=== PATIENT | male | born 1950 | race Caucasian/White ===

== ENCOUNTER 2017-06-18 07:52 | Inpatient (IN) ==
[2017-06-18] MEDS ORDERED: NS 1,000 ML IV ONE (08:16)
--- NOTE | 2017-06-18 08:17 | Emergency Department Report ---
General Adult HPI - General Chief complaint: Medical Emergency Stated complaint: ARZATE, Rash, Pain in rt thigh Time Seen by Provider: 06/18/17 08:14 Source: patient Mode of arrival: ambulatory Limitations: no limitations - History of Present Illness HPI narrative: 67-year-old male presents to the emergency department with a chief complaint of a rash to the right lower extremity. Patient has been feeling poorly for the past several days. Patient noted onset of rash 1 day ago. Patient describes the rash as being similar to cellulitis in the past. Patient describes his pain as mild. Pain is dull. No radiation. Patient was at home when his symptoms began. Symptoms have been persistent in nature since onset. He does note improvement with analgesia. No other complaints or associated symptoms. - Related Data Home Medications Medication Instructions Recorded Confirmed Cholecalciferol (Vitamin D3) 3,000 unit PO DAILY #0 08/27/16 06/18/17 [Vitamin D3] Aspirin 325 mg PO HS 06/16/17 06/18/17 Lisinopril [Prinivil] 10 mg PO HS 06/16/17 06/18/17 Multivitamin [One Daily] 1 tab PO DAILY 06/16/17 06/18/17 Ondansetron [Zofran Odt] 4 mg PO Q6HR PRN 06/18/17 06/18/17 Allergies Allergy/AdvReac Type Severity Reaction Status Date / Time streptomycin Allergy Unknown Verified 06/18/17 10:04 Sulfa (Sulfonamide Allergy Unknown Verified 06/18/17 10:04 Antibiotics) Review of Systems Constitutional: Denies: fever, chills Eyes: Denies: eye pain, vision change ENT: Denies: ear pain, throat pain Cardiovascular: Denies: chest pain, palpitations Respiratory: Denies: cough, dyspnea Gastrointestinal: Denies: abdominal pain, nausea, vomiting, diarrhea Genitourinary: Denies: urgency, dysuria Musculoskeletal: Denies: back pain, arthralgia Integumentary: Reports: erythema. Denies: rash Neurological: Denies: headache, numbness Psychiatric: Denies: anxiety, depression Endocrine: Denies: fatigue, heat or cold intolerance Hematological/Lymphatic: Denies: easy bleeding, easy bruising Allergic/Immunologic: Denies: facial swelling, urticaria PFSH Patient Stated Medical History Hypertension Yes Sepsis Yes: 3 years ago-ankle wound Surgical History: Debridement of RLE Family History: Reviewed and Noncontributory. - Social History Smoking status: Never smoker Substance use type: does not use Alcohol intake frequency: does not drink Physical Exam - Limitations Limitations: no limitations - General General appearance: alert, in no apparent distress - Normal Exams: Head:: Normocephalic without trauma Eyes:: Pupils are PERRLA w/ EOMI, No scleral icterus, irritation, or foreign bodies noted ENMT:: No facial trauma, nasal exudates, pharyngeal erythema, or exudates are noted Dental: No fractured, loose, or missing teeth noted Neck:: Full range of motion, without adenopathy, JVD, bruits or thyromegaly Chest/Respirations:: Clear all esposito, with good airflow, and symmetry bilaterally Cardiovascular:: Regular rate and rhythm, without murmur or gallop, Pulses 2+ all extremities, capillary refill, <2 seconds all extremities Abdomen:: Bowel sounds positive, soft, non-tender, non-distended, no hepatosplenomegaly, masses or bruits noted Lymphatic:: No lymphadenopathy, or lymphedema noted Musculoskeletal:: No tenderness, or deformity noted, good range of motion, all extremities Integumentary:: No rashes, hives, or bruising noted, hair and nails, without abnormality (RLE - erythema and tenderness consistent with cellulitis noted over anterior right lower extremity over the eric. No sign of abscess. Pulses are intact. Sensation intact. Capillary refill less than 2. Full range of motion. No focal bony tenderness. Patient does have signs of lymphangitis extending to his groin.) Neurological:: Patient is alert, and oriented, cranial nerves, motor/sensory/ cerebellar, exams w/o gross deficits, to observation Psychiatric:: Patient exhibits, appropriate attention, emotion and affect Course Vital Signs Temperature 98.1 F 06/18/17 08:00 Pulse Rate 78 06/18/17 08:00 Respiratory Rate 16 06/18/17 08:00 Blood Pressure 117/63 06/18/17 08:00 Pulse Oximetry 99 06/18/17 08:00 Temperature 97.0 F 06/18/17 15:30 Pulse Rate 82 06/18/17 15:30 Respiratory Rate 82 H 06/18/17 16:05 Blood Pressure 135/90 H 06/18/17 15:30 Pulse Oximetry 99 06/18/17 16:05 Medical Decision Making - [facility] Narrative Medical decision making narrative: Labs / imaging were discussed in detail with the patient and questions are answered. Patient was given gentle IV hydration. Patient was given analgesic pain medication with improvement of symptoms. Patient was given vancomycin 1.75 g IV times one. Patient was admitted to the service of the hospitalist in improved condition for treatment of cellulitis with lymphangitis. Patient and family are in agreement with the current plan of management. Patient is admitted to the hospital in improved condition. No further orders from the accepting physician who is in agreement with the current plan of management. Patient was admitted to the service of Dr. Dubois after discussion with her. Sepsis was considered at 1028 and Vancomycin 1.75 g iv x 1 was ordered. Patient' s lactate was < 4 and he was never hypotensive in the ED. - Differential Diagnosis Cellulitis, lymphangitis, viral syndrome, metabolic disorder - Lab Data Result diagrams: 06/18/17 08:32 06/18/17 08:32 Lab Results 06/18/17 06/18/17 Range/Units 08:32 08:32 WBC 6.7 D (4.5-11.0) T/MM3 RBC 4.62 (4.50-5.90) M/MM3 Hgb 13.9 (13.5-17.5) GM/DL Hct 42.2 (41-53) % MCV 91.3 (80-100) UM3 MCH 30.1 (26-34) UUG MCHC 32.9 (31-37) GM/DL RDW Std Deviation 46.8 (36.9-50.2) FL Plt Count 160 (130-400) T/MM3 MPV 10.2 (9.4-12.4) UM3 Immature Gran % (Auto) 0.0 (0.0-0.5) % Neut % (Auto) 78.8 H (33-66) % Lymph % (Auto) 10.5 L (23-45) % Divide % (Auto) 9.1 H (0-9.0) % Eos % (Auto) 1.3 (0-4) % Baso % (Auto) 0.3 (0-2) % Neut # (Auto) 5.3 (1.8-7.7) T/MM3 Lymph # (Auto) 0.7 L (1-4.8) T/MM3 Divide # (Auto) 0.6 (0-0.8) T/MM3 Eos # (Auto) 0.1 (0-0.5) T/MM3 Baso # (Auto) 0.0 (0-0.2) T/MM3 Abs Immat Gran (auto) 0.00 (0.00-0.03) T/MM3 Turbidity < 20 (0-20) Sodium 141 (134-144) MEQ/L Potassium 4.0 (3.6-5) MEQ/L Chloride 106 (98-107) MEQ/L Carbon Dioxide 26 (22-30) MEQ/L Anion Gap 9 (5-15) MEQ/L BUN 10.0 (9-20) MG/DL Creatinine 0.9 D (0.8-1.5) MG/DL GFR Calculation 84 BUN/Creatinine Ratio 11 (6-26) RATIO Glucose 93 (75-110) MG/DL Calculated Osmolality 270 (261-280) MOSM/KG Calcium 8.6 (8.4-10.2) MG/DL Total Bilirubin 0.60 (0.20-1.30) MG/DL Icterus Index < 2 (0-7) AST 31 (17-59) U/L ALT 35 (21-72) U/L Alkaline Phosphatase 52 (38-126) U/L C-Reactive Protein 76.6 H (0-9) MG/L Total Protein 6.5 (6.3-8.2) G/DL Albumin 3.8 (3.5-5.0) G/DL Globulin 2.7 (2.4-3.6) G/DL Albumin/Globulin Ratio 1.4 (1.1-2.2) RATIO Plasma Lactate 1.1 (0.6-2.2) MMOL/L Specimen Hemolysis < 15 (0-25) - Radiology Data TIB/FIB X-ray - Soft tissue swelling without gas or acute processes. Venous Duplex RLE - Negative for dvt. Disposition Clinical Impression: CELLULITIS Disposition: [facility] [place] Care Condition: Stable Time of Disposition: 10:15 (Admit. Dr. Dubois. ) - Seen By: physician
--- OUTSIDE RECORDS SUMMARY | 2017-06-18 08:28 | External Medical Summary | Encounter Summary ---
:1950 Author Organization [facility] Address [address] [place] [address] Phone Care Team Providers Name Role Phone Unavailable Primary Care Provider Unavailable Encounter Details Date Type Department Care Team Description 06/13/2017 Lab Visit [facility] - Personal history of [place] malignant neoplasm of [address] prostate (Primary Dx) [place] [address] Social History Tobacco Use Types Packs/Day Years Used Date Never Smoker Smokeless Tobacco: Never Used Alcohol Use Drinks/Week oz/Week Comments No Alcoholic Drinks/day: Never Sex Assigned at Date Recorded Not on file as of this encounter Plan of Treatment Upcoming Encounters Date Type Specialty Care Team Description 08/28/2017 Office Visit Internal Medicine Bib Fleming MD [address] [place] [address] as of this encounter Goals Patient Goal Type Goal Recent Progress Patient-Stated? Author Weight Weight (lb) < 110.2 kg (243 lb) No Bib Fleming, 200 (05/30/2017 9:30 MD AM DRIVER SERVICE TECHNICIAN) as of this encounter Results PSA (06/13/2017 7:23 AM) Component Value Ref Range PSA 0.03 0.00 - 4.00 ng/mL Specimen Performing Laboratory Blood [facility] [address] [place] [address] in this encounter Visit Diagnoses Diagnosis Personal history of malignant neoplasm of prostate - Primary in this encounter
--- OUTSIDE RECORDS SUMMARY | 2017-06-18 08:28 | External Medical Summary | Encounter Summary ---
:1950 Author Organization [facility] Address [address] [place] [phone] Phone Care Team Providers Name Role Phone Unavailable Primary Care Provider Unavailable Reason for Visit Reason Comments Other follow up Encounter Details Date Type Department Care Team Description 05/30/2017 Office Visit Bib Emery, Mixed hyperlipidemia Internal Medicine - [place] (Primary Dx);Essential [place] [address] hypertension;Chronic [address] [place] [address] [place] (HCC);Diabetes mellitus [phone] type 2 in obese [phone] ([facility]);Right hip pain Social History Tobacco Use Types Packs/Day Years Used Date Never Smoker Smokeless Tobacco: Never Used Alcohol Use Drinks/Week oz/Week Comments No Alcoholic Drinks/day: Never Sex Assigned at Date Recorded Not on file as of this encounter Last Filed Vital Signs Vital Sign Reading Time Taken Blood Pressure 130/76 05/30/2017 9:[address] JUDGE Pulse 72 05/30/2017 9:[address] JUDGE Temperature - - Respiratory Rate - - Oxygen Saturation - - Inhaled Oxygen Concentration - - Weight 110.2 kg (243 lb) 05/30/2017 9:[address] JUDGE Height 170.2 cm (5' 7") 05/30/2017 9:[address] JUDGE Body Mass Index 38.06 05/30/2017 9:[address] JUDGE in this encounter Instructions Patient Instructions - Bib Fleming MD - 05/30/2017 9:30 AM CSTContinue weight loss efforts.in this encounter Progress Notes Bib Fleming MD - 05/30/2017 9:30 AM CSTFormatting of this note may be different from the original. 05/30/2017 CHIEF COMPLAINT Chief Complaint Patient presents with Other follow up SUBJECTIVE Abel Prado is a 67 y.o. male who presents For follow-up regarding his diabetes, hypertension, systolic heart failure, hyperlipidemia, and a complaint of right hip pain. For a couple weeks he had some right buttock pain that did radiate to the right groin. It's resolved over the past week. He knowsof no injury. It did not radiate down his leg. He had no associated back pain. He's never had hip arthritis and knows of. Since it's resolved he doesn't miss early feel like it needs any workup. He does bring in recordings of all his blood pressures, blood sugars, and weights. Everything is looking stable. His blood pressure is very typically in the 90s systolic. He is not lightheaded or dizzyand says he has enough energy level, so he would like to continue the same medicines for now. He follows up with his urologist later this month. Health Maintenance There are no preventive care reminders to display for this patient. Social history Social History Social History Marital status: Single Spouse name: N/A Number of children: N/A Years of education: N/A Occupational History Not on file. Social History Main Topics Smoking status: Never Smoker Smokeless tobacco: Never Used Alcohol use No Comment: Alcoholic Drinks/day: Never Drug use: No Sexual activity: Not on file Other Topics Concern Caffeine Concern Yes Tea plus pop/2 cans /day Seat Belt Yes 100 % Permanently Non-Ambulatory? No Social History Narrative Family history Family History Problem Relation Age of Onset Diabetes Mother Cancer Father Other Other Mother - 82 Other Other Father - Cause of :Cancer, prostate Other Other Sister #1 - at the age of 1, Other Other Brother #1 - at the age of 22, Cause of :Lymphoma ROS Constitutional: No weight change, fatigue or insomnia Skin: No rash or open sores Eyes: No vision changes Cardiac: No chest pain, palpitations, orthopnea PND or increased lower extremity edema Respiratory: No shortness of breath, cough, sputum production, or wheezing GI: No early satiety, nausea, vomiting, heartburn, blood in the stools, black stools Musculoskeletal: No new arthralgias or myalgias Neurologic: No numbness, tingling, unilateral weakness or numbness Endocrine: No polyuria or polydipsia Vascular: No claudication Feet: No changes in numbness or tingling, no new sores or ulcers. MEDICATIONS Current Outpatient Prescriptions Medication Sig Dispense Refill ANUSOL-HC 25 MG suppository UNWRAP AND INSERT 1 SUPPOSITORY RECTALLY TWICE DAILY 12 suppository 0 aspirin 81 MG chewable tablet Take 81 mg by mouth daily. atorvastatin (LIPITOR) 10 MG tablet Take 1 tablet (10 mg total) by mouth daily. 90 tablet 3 B Complex-C (SUPER B COMPLEX PO) Take 1 capsule by mouth daily. DANIKA CONTOUR TEST test strip USE TO TEST BLOOD SUGAR TWICE DAILY 100 strip 5 Coenzyme Q10 (CO Q 10 PO) Take 1 tablet by mouth daily. docusate sodium (COLACE) 100 MG capsule Take 100 mg by mouth 2 (two) times daily. glipiZIDE (GLUCOTROL XR) 10 MG 24 hr tablet TAKE 1 TABLET(10 MG) BY MOUTH DAILY 90 tablet 3 losartan-hydrochlorothiazide (HYZAAR) 100-25 MG per tablet Take 1 tablet by mouth daily. 90 tablet 3 metFORMIN (GLUCOPHAGE) 500 MG tablet Take 1 tablet (500 mg total) by mouth 2 (two) times daily with meals. 60 tablet 11 Methylcellulose, Laxative, (EQ FIBER THERAPY PO) Take 1 capsule by mouth 2 ( two) times daily. Misc Natural Products (LUTEIN 20) CAPS Take 1 capsule by mouth daily. Multiple Vitamins-Minerals (CENTRUM SILVER) TABS Take 1 tablet by mouth daily. pioglitazone (ACTOS) 45 MG tablet Take 1 tablet (45 mg total) by mouth daily. 90 tablet 3 vitamin C (ASCORBIC ACID) 500 MG tablet Take 500 mg by mouth daily. No current facility-administered medications for this visit. ALLERGIES No Known Allergies PHYSICAL EXAM Vital Signs: Visit Vitals BP 130/76 Pulse 72 Ht 5' 7" (1.702 m) Wt 243 lb (110.2 kg) BMI 38.06 kg/m2 Constitutional: Well developed, Obese, in no apparent distress, weight is down 5 pounds in the last3 months. Neck: Supple with no lymphadenopathy, JVD, thyromegaly, or bruit Lungs: Clear to auscultation bilaterally with normal respiratory effort. No wheezes or rales Heart: RRR without murmur, S3, or S4 Abdomen: Soft, nontender, nondistended, normoactive bowel sounds, no organomegaly Vascular: No carotid bruits, peripheral pulses intact Extremities: No cyanosis, clubbing or edema Foot Exam: Skin intact with no ulcerations Back exam: There is no pain to palpation of the low back. Patient has normal strength with hip flexion and extension, knee flexion and extension, ankle dorsalflexion and plantar flexion bilaterally. Sensory exam in the legs is normal and equal bilaterally. Deep tendon reflexes at the knees and ankles are normal and equal bilaterally. There is no pain with straight leg raising or frog leg maneuver bilaterally. There is normal range of motion with passive hip flexion and extension and knee flexion and extension bilaterally. RESULTS Lab Visit on 05/29/2017 Component Date Value Ref Range Status Hemoglobin A1C 05/29/2017 6.6* <5.7 % Final Albumin 05/29/2017 3.8 3.4 - 5.0 g/dL Final Alkaline Phosphatase 05/29/2017 66 46 - 116 U/L Final ALT 05/29/2017 23 12 - 78 U/L Final AST 05/29/2017 18 15 - 37 U/L Final Total Bilirubin 05/29/2017 0.6 0.0 - 1.0 mg/dL Final BUN, Bld 05/29/2017 16 7 - 22 mg/dL Final Calcium 05/29/2017 9.0 8.8 - 10.5 mg/dL Final Chloride 05/29/2017 99 98 - 107 mmol/L Final Creatinine 05/29/2017 1.33* 0.60 - 1.30 mg/dL Final Glucose 05/29/2017 148* 74 - 106 mg/dL Final Potassium 05/29/2017 3.8 3.5 - 5.1 mmol/L Final Total Protein 05/29/2017 7.0 6.4 - 8.2 g/dL Final Sodium 05/29/2017 137 136 - 145 mmol/L Final CO2 05/29/2017 25 21 - 32 mmol/L Final Anion Gap 05/29/2017 13 Final eGFR 05/29/2017 >59 >59 mL/min Final Microalb, Ur 05/29/2017 8 0 - 20 mg/L Final ASSESSMENT AND PLAN Patient Active Problem List Diagnosis Lipoma of other specified sites Mixed hyperlipidemia Obesity, unspecified Essential hypertension Systolic heart failure (HCC) Diabetes mellitus type 2 in obese (HCC) Hypertrophy of prostate without urinary obstruction and other lower urinary tract symptoms (LUTS) Hypopotassemia Prostate cancer (HCC) 1. Mixed hyperlipidemia Well controlled. Check lipids with his physical in 3 months. - atorvastatin (LIPITOR) 10 MG tablet; Take 1 tablet (10 mg total) by mouth daily. Dispense: 90 tablet; Refill: 3 - Lipid panel; Future - TSH (Reflex Free T4 if abnormal); Future 2. Essential hypertension Excellent control - losartan-hydrochlorothiazide (HYZAAR) 100-25 MG per tablet; Take 1 tablet by mouth daily. Dispense: 90 tablet; Refill: 3 - CBC and differential; Future 3. Chronic systolic heart failure (HCC) Compensated 4. Diabetes mellitus type 2 in obese (HCC) Also well controlled - glipiZIDE (GLUCOTROL XR) 10 MG 24 hr tablet; TAKE 1 TABLET(10 MG) BY MOUTH DAILY Dispense: 90 tablet; Refill: 3 - metFORMIN (GLUCOPHAGE) 500 MG tablet; Take 1 tablet (500 mg total) by mouth 2 (two) times daily with meals. Dispense: 60 tablet; Refill: 11 - pioglitazone (ACTOS) 45 MG tablet; Take 1 tablet (45 mg total) by mouth daily. Dispense: 90 tablet; Refill: 3 - Comprehensive metabolic panel; Future - Hemoglobin A1c; Future 5. Right hip pain Self-limited. No workup indicated at this time. 1. Reviewed pertinent history. 2. Patient expressed understanding and agreement with plan. Electronically signed by: Bib Fleming MD, 05/30/2017 9:57 AM Erin Bowling MA - 05/30/2017 9:30 AM CSTPatient is here for a check up. Patient states that his right hip has been bothering him. Pt states no pain in hip today. No other questions or concerns.in this encounter Plan of Treatment Upcoming Encounters Date Type Specialty Care Team Description 08/28/2017 Office Visit Internal Medicine Bib Fleming MD [address] [place] [address] Scheduled Tests Name Priority Associated Diagnoses Order Schedule Lipid panel Routine Mixed hyperlipidemia Expected: 08/28/2017 (Approximate), Expires: 07/30/2018 Comprehensive metabolic Routine Diabetes mellitus type 2 in Expected: 2017, panel obese (HCC) Expires: 05/30/2018 Hemoglobin A1c Routine Diabetes mellitus type 2 in Expected: 08/28/2017, obese (HCC) Expires: 05/30/2018 TSH (Reflex Free T4 if Routine Mixed hyperlipidemia Expected: 08/28/2017, abnormal) Expires: 05/30/2018 CBC and differential Routine Essential hypertension Expected: 08/28/2017, Expires: 05/30/2018 as of this encounter Goals Patient Goal Type Goal Recent Progress Patient-Stated? Author Weight Weight (lb) < 110.2 kg (243 lb) No Bib Fleming K, 200 (05/30/2017 9:[address] JUDGE) as of this encounter Visit Diagnoses Diagnosis Mixed hyperlipidemia - Primary Essential hypertension Unspecified essential hypertension Chronic systolic heart failure (HCC) Chronic systolic heart failure Diabetes mellitus type 2 in obese (HCC) Type II or unspecified type diabetes mellitus without mention of complication, not stated as uncontrolled Right hip pain Pain in joint, pelvic region and thigh in this encounter
--- OUTSIDE RECORDS SUMMARY | 2017-06-18 08:28 | External Medical Summary | Encounter Summary ---
:1950 Author Organization [facility] Address [address] [place] [id number] Phone Care Team Providers Name Role Phone Unavailable Primary Care Provider Unavailable Encounter Details Date Type Department Care Team Description 05/29/2017 Lab Visit [facility] - Diabetes mellitus type 2 in [place] obese (HCC) [address] [place] [address] Social History Tobacco Use Types Packs/Day Years Used Date Never Smoker Smokeless Tobacco: Never Used Alcohol Use Drinks/Week oz/Week Comments No Alcoholic Drinks/day: Never Sex Assigned at Date Recorded Not on file as of this encounter Plan of Treatment Upcoming Encounters Date Type Specialty Care Team Description 08/28/2017 Office Visit Internal Medicine Bib Fleming MD [address] [place] [address] as of this encounter Goals Patient Goal Type Goal Recent Progress Patient-Stated? 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 [place] [address] Comprehensive metabolic panel (05/29/2017 7:38 AM) Component Value Ref Range Albumin 3.8 3.4 - 5.0 g/dL Alkaline Phosphatase 66 46 - 116 U/L ALT 23 12 - 78 U/L AST 18 15 - 37 U/L Total Bilirubin 0.6 0.0 - 1.0 mg/dL BUN, Bld 16 7 - 22 mg/dL Calcium 9.0 8.8 - 10.5 mg/dL Chloride 99 98 - 107 mmol/L Creatinine 1.33 (H) 0.60 - 1.30 mg/dL Glucose 148 (H) 74 - 106 mg/dL Potassium 3.8 3.5 - 5.1 mmol/L Total Protein 7.0 6.4 - 8.2 g/dL Sodium 137 136 - 145 mmol/L CO2 25 21 - 32 mmol/L Anion Gap 13 eGFR >59 >59 mL/min Specimen Performing Laboratory Blood [facility] [address] [place] [address] Hemoglobin A1c (05/29/2017 7:38 AM) Component Value Ref Range Hemoglobin A1C 6.6 (H) <5.7 % Specimen Performing Laboratory Blood [facility] [address] [address] Narrative [place] [employer] recommendations are as follows: Normal - A1c less than 5.7% Prediabetes - A1c 5.7 - 6.4% Diabetes - A1c 6.5% or greater in this encounter Visit Diagnoses Diagnosis Diabetes mellitus type 2 in obese (HCC) Type II or unspecified type diabetes mellitus without mention of complication, not stated as uncontrolled in this encounter
--- OUTSIDE RECORDS SUMMARY | 2017-06-18 08:28 | External Medical Summary | Clinical Summary ---
:1950 Author Organization [facility] Address [address] [address] Phone Support Name Relationship Address Phone Unavailable Unavailable Unavailable Allergies No Known Allergies Current Medications Prescription Sig. Disp. Refills Start End Status Date Date B Complex-C (SUPER Take 1 capsule Active B COMPLEX PO) by mouth daily. vitamin C Take 500 mg by Active (ASCORBIC ACID) mouth daily. 500 MG tablet Misc Natural Take 1 capsule Active Products (LUTEIN by mouth daily. 20) CAPS Coenzyme Q10 (CO Q Take 1 tablet Active 10 PO) by mouth daily. aspirin 81 MG Take 81 mg by Active chewable tablet mouth daily. docusate sodium Take 100 mg by Active (COLACE) 100 MG mouth 2 (two) capsule times daily. Multiple Take 1 tablet Active Vitamins-Minerals by mouth daily. (CENTRUM SILVER) TABS Methylcellulose, Take 1 capsule Active Laxative, (EQ by mouth 2 FIBER THERAPY PO) (two) times daily. ANUSOL-HC 25 MG UNWRAP AND 12 suppository 0 Active suppository INSERT 1 6 SUPPOSITORY RECTALLY TWICE DAILY DANIKA CONTOUR TEST USE TO TEST 100 strip 5 Active test BLOOD SUGAR 7 stripIndications: TWICE DAILY Diabetes mellitus type 2 in obese (HCC) losartan-hydrochlo Take 1 tablet 90 tablet 3 Active rothiazide by mouth daily. 7 (HYZAAR) 100-25 MG per tabletIndications: Essential hypertension atorvastatin Take 1 tablet 90 tablet 3 Active (LIPITOR) 10 MG (10 mg total) 7 tabletIndications: by mouth daily. Mixed hyperlipidemia glipiZIDE TAKE 1 90 tablet 3 Active (GLUCOTROL XR) 10 TABLET(10 MG) 7 MG 24 hr BY MOUTH DAILY tabletIndications: Diabetes mellitus type 2 in obese (HCC) metFORMIN Take 1 tablet 60 tablet 11 Active (GLUCOPHAGE) 500 (500 mg total) 7 MG by mouth 2 tabletIndications: (two) times Diabetes mellitus daily with type 2 in obese meals. (HCC) pioglitazone Take 1 tablet 90 tablet 3 Active (ACTOS) 45 MG (45 mg total) 7 tabletIndications: by mouth daily. Diabetes mellitus type 2 in obese (HCC) atorvastatin TAKE 1 TABLET 90 tablet 3 Discontinued (LIPITOR) 10 MG BY MOUTH EVERY 6 017 tablet DAY losartan-hydrochlo TAKE 1 TABLET 30 tablet 11 Discontinued rothiazide BY MOUTH ONCE 7 017 (HYZAAR) 100-25 MG DAILY per tablet pioglitazone TAKE 1 TABLET 90 tablet 3 Discontinued (ACTOS) 45 MG BY MOUTH EVERY 7 017 tablet DAY metFORMIN TAKE 1 TABLET 60 tablet 11 Discontinued (GLUCOPHAGE) 500 BY MOUTH TWICE 7 017 MG tablet DAILY WITH MEALS glipiZIDE TAKE 1 30 tablet 11 Discontinued (GLUCOTROL XR) 10 TABLET(10 MG) 7 017 MG 24 hr tablet BY MOUTH DAILY Active Problems Problem Noted Date Prostate cancer (HCC) 10/14/2013 Lipoma of other specified sites Mixed hyperlipidemia Obesity, unspecified Essential hypertension Systolic heart failure (HCC) Diabetes mellitus type 2 in obese (HCC) Hypertrophy of prostate without urinary obstruction and other lower urinary tract symptoms (LUTS) Hypopotassemia Encounters Date Type Specialty Care Team Description 06/13/2017 Lab Visit Personal history of malignant neoplasm of prostate (Primary Dx) 06/05/2017 [facility], [facility] 05/30/2017 Office Visit Bib Fleming MD Mixed hyperlipidemia (Primary Dx);Essential hypertension;Chronic systolic heart failure (HCC);Diabetes mellitus type 2 in obese (HCC);Right hip pain 05/29/2017 Lab Visit Diabetes mellitus type 2 in obese (HCC) from Last 3 Months Immunizations Name Dates Previously Given Next Due Herpes Zoster (Zostavax) 01/11/2013 INFLUENZA A&B TRIVALENT VAC 02/28/2017 ADJUVANTED PF (Adults=>65 y/o-FLUAD) INFLUENZA IIV3 HD (Adults=>65 05/27/2016, 05/15/2015 y/o-FLUZONE HD) Influenza IIV3 PFree 04/15/2013, 04/12/2012, 04/04/2011, 06/29/2010, 03/13/2009, 06/02/2008, 04/27/2007, 04/21/2006 Influenza IIV4 MDV (Multi-dose vial) 05/20/2014 Pneumococcal Conjugate (13-valent) 08/19/2014 Pneumococcal Polysaccharide (23-valent) 11/12/2015, 01/27/2005 Td(adult) PFree,adsorbed 11/25/2016 Tdap 01/20/2006 Family History Medical History Relation Name Comments Cancer Father Diabetes Mother Other Other Mother - 82 Other Other Father - Cause of :Cancer, prostate Other Other Sister #1 - at the age of 1, Other Other Brother #1 - at the age of 22, Cause of :Lymphoma Relation Name Status Comments Father (Age 72) Mother Other Other Other Other Social History Tobacco Use Types Packs/Day Years Used Date Never Smoker Smokeless Tobacco: Never Used Tobacco Cessation: Counseling Given: No Alcohol Use Drinks/Week oz/Week Comments No Alcoholic Drinks/day: Never Sex Assigned at Date Recorded Not on file Last Filed Vital Signs Vital Sign Reading Time Taken Blood Pressure 130/76 05/30/2017 9:30 AM WINDER HELPER Pulse 72 05/30/2017 9:30 AM WINDER HELPER Temperature - - Respiratory Rate 16 08/26/2016 3:46 PM WINDER HELPER Oxygen Saturation - - Inhaled Oxygen Concentration - - Weight 110.2 kg (243 lb) 05/30/2017 9:30 AM WINDER HELPER Height 170.2 cm (5' 7") 05/30/2017 9:30 AM WINDER HELPER Body Mass Index 38.06 05/30/2017 9:30 AM WINDER HELPER Plan of Treatment Upcoming Encounters Date Type Specialty Care Team Description 08/28/2017 Office Visit Bib Fleming MD [address] [place] [address] [place] [id number] Health Maintenance Due Date Last Done Comments Ophthalmology Exam 08/22/2017 08/22/2016, 05/27/2016, 05/27/2016, Additional history exists Diabetic Foot Exam 02/28/2018 02/28/2017, 02/25/2016, 02/13/2015, Additional history exists Colon Cancer Screening 05/15/2022 05/15/2012 DTaP,Tdap,and Td Vaccines (3 - Td) 11/25/2026 11/25/2016, 01/20/2006 Zoster Vaccine Completed 01/11/2013 Pneumo-Adult Completed 11/12/2015, 08/19/2014, 01/27/2005 Hepatitis C Screening Completed 02/23/2016 Influenza Vaccine Completed 02/28/2017, 05/27/2016, 05/15/2015, Additional history exists Goals Patient Goal Type Goal Recent Progress Patient-Stated? Author Weight Weight (lb) < 110.2 kg (243 lb) Bib Mendoza K, 200 (05/30/2017 9:30 MD AM WINDER HELPER) Results PSA (06/13/2017 7:23 AM) Component Value Ref Range PSA 0.03 0.00 - 4.00 ng/mL Specimen Performing Laboratory Blood [facility] [address] [place] [address] Microalbumin (05/29/2017 7:41 AM) Component Value Ref Range Microalb, Ur 8 0 - 20 mg/L Specimen Performing Laboratory Urine [facility] [address] [place] [address] Hemoglobin A1c (05/29/2017 7:38 AM) Component Value Ref Range Hemoglobin A1C 6.6 (H) <5.7 % Specimen Performing Laboratory Blood [facility] [address] [place] [address] [place] [address] Narrative [place] [employer] recommendations are as follows: Normal - A1c less than 5.7% Prediabetes - A1c 5.7 - 6.4% Diabetes - A1c 6.5% or greater Comprehensive metabolic panel (05/29/2017 7:38 AM) Component [...] >59 >59 mL/min Specimen Performing Laboratory Blood [facility] [address] [place] [address] [place] [address] from Last 3 Months
--- OUTSIDE RECORDS SUMMARY | 2017-06-18 08:28 | External Medical Summary | Encounter Summary ---
:1950 Author Organization [facility] Address [address] [address] Phone Care Team Providers Name Role Phone Unavailable Primary Care Provider Unavailable Encounter Details Date Type Department Care Team Description 06/05/2017 [facility] Scan MULTIPLE TESTS Link, [facility]base [place], [place] Social History Tobacco Use Types Packs/Day Years Used Date Never Smoker Smokeless Tobacco: Never Used Alcohol Use Drinks/Week oz/Week Comments No Alcoholic Drinks/day: Never Sex Assigned at Date Recorded Not on file as of this encounter Plan of Treatment Upcoming Encounters Date Type Specialty Care Team Description 08/28/2017 Office Visit Internal Medicine Bib Fleming MD [address] [place] [address] [place] [id number] as of this encounter Goals Patient Goal Type Goal Recent Progress Patient-Stated? Author Weight Weight (lb) < 110.2 kg (243 lb) No Bib Fleming, 200 (05/30/2017 9:30 MD [employer]ER) as of this encounter Visit Diagnoses Not on filein this encounter
--- OUTSIDE RECORDS SUMMARY | 2017-06-18 08:29 | External Medical Summary ---
:1950 [facility] Care Team Providers Name Role Phone Jaime Srinivasan Provider Role Unavailable Allergies, Adverse Reactions, Alerts Substance Reaction Event Type SULFA DRUGS childhood Drug Allergy vancomycin rash/tingling Drug Allergy Augmentin itching/no rash Drug Allergy mycin family Info Not Available Non Drug Allergy Problems Problem Type Condition Code Onset Dates Condition Status Assessment Essential (primary) hypertension I10 Active Assessment Encounter for screening for lipoid Z13.220 Active disorders Assessment Encounter for general adult medical Z00.01 Active examination with abnormal findings Assessment Personal history of malignant Z85.46 Active neoplasm of prostate Medications Medication Code System Code Instructions Start Date End Date Status Dosage lisinopril NDC 83666 10 mg orally once a December 31 tab(s) day 2015 Vitamin D3 NDC 4871 5000 intl units 1 cap(s) orally once a day Aspirin NDC 12143 325 mg 1 tab Procedures Procedure Coding System Code Date Comp Metabolic Panel CPT-4 02967 Jan 28, 2016 Lipid Panel CPT-4 85275 Jan 28, 2016 CBC with Differential WBC CPT-4 88000 Jan 28, 2016 Office Est Level 3 CPT-4 59088 Jan 28, 2016 PSA Total CPT-4 94282 Jan 28, 2016 Vital Signs Date/Time: Jan 28, 2016 BMI 28.28 Index Blood Pressure Diastolic 79 mm Hg Height 72.25 in Weight 210 lbs Respiratory Rate 16 /min Temperature 98.5 F Waist Hips Ratio .56 % Waist 41 Inches Blood Pressure Systolic 126 mm Hg Cardiac Monitoring Heart Rate 65 /min Results Name Result Date Reference Range Unit Abnormality Flag PSA ----PSA 0.02 [id number] 0.00-4.00 ng/mL CBC w/differential ----HCT 42.5 [id number] 36.0-50.0 % ----EOS 0.4 [id number] 0.0-0.4 K/uL ----MONO 0.6 [id number] 0.1-1.0 K/uL ----HGB 14.5 [id number] 12.0-17.0 g/dL ----% JANELLE 67.1 [id number] 45.0-76.0 % ----RBC 4.8 [id number] 2.8-5.5 M/uL ----BASO 0.1 [id number] 0.0-0.2 K/uL ----% BASO 0.7 [id number] 0.0-2.0 % ----RDW 14.3 [id number] 11.0-15.8 % ----WBC 7.4 [id number] 4.0-10.0 K/uL ----MCHC 34.1 [id number] 32.0-36.5 g/dL ----MCH 30.2 [id number] 27.0-34.0 pg ----LYM 1.4 [id number] 0.7-4.5 K/uL ----MCV 88.5 27104029 81.0-97.0 fL ----JANELLE 5.0 [id number] 1.4-7.8 K/uL ----MPV 9.9 [id number] 0.0-99.9 fL ----% EOS 6.0 93169954 0.0-4.0 % H ----PLT 236.0 [id number] 150.0-425.0 K/uL ----% LYM 18.7 [id number] 12.0-44.0 % ----% MONO 7.5 [id number] 3.0-10.0 % CMP ----C02 26.2 [id number] 21.0-32.0 mEq/L ----CL 105.0 [id number] 94.0-112.0 mEq/L ----URIC ACID 5.5 [id number] 2.6-7.0 mg/dL ----ALT 20.0 [id number] 12.0-78.0 U/L ----AST 14.90 [id number] 15.00-37.00 U/L L ----ALK 53.00 [id number] 50.00-136.00 U/L ----T PROTIEN 6.81 [id number] 6.30-8.10 g/dL ----ALB 4.30 [id number] 3.40-5.00 g/dL ----CA 9.46 [id number] 8.60-10.00 mg/dL ----T BILI 1.00 [id number] 0.00-1.00 mg/dL ----K 4.4 20160128 3.6-5.5 mEq/L ----NA 142.0 [id number] 134.0-149.0 mEq/L ----GLUCOSE 84.9 [id number] 70.0-100.0 mg/dL ----BUN 13.80 [id number] 6.00-20.00 mg/dL ----CREAT 1.130 [id number] 0.600-1.400 mg/dL ----eGFR, calculated 60 20160128 >60 LIPID PROFILE ----VLDL 22.9 [id number] 0.0-50.0 mg/dL ----LDL 83.5 [id number] 0.0-129.0 mg/dL ----TRIG 114.40 [id number] 30.00-150.00 mg/dL ----HDL 45.60 [id number] 40.00-96.00 mg/dL ----CHOL 152.00 [id number] <200.00 mg/dL Summary Purpose [employer] Submission
--- OUTSIDE RECORDS SUMMARY | 2017-06-18 08:29 | External Medical Summary ---
:1950 Author Organization [employer] Care Team Providers Name Role Seema Sethi Provider Role Unavailable Allergies No Known Allergies Problems Problem Type Condition Code Onset Dates Condition Status Problem HTN [Hypertension] 401.9 Active Medications Medication Code System Code Instructions Start Date End Date Status Dosage lisinopril [facility] [address] 10 mg orally once a December 31, tab(s) 2015 Results No Known Results Summary Purpose [employer] Submission
--- OUTSIDE RECORDS SUMMARY | 2017-06-18 08:29 | External Medical Summary ---
:1950 Author Organization [facility] Care Team Providers Name Role Phone Jaime Srinivasan Provider Role Unavailable Allergies No Known Allergies Problems Problem Type Condition Code Onset Dates Condition Status Assessment Rectal polyp K62.1 Active Assessment Family history of colon cancer Z80.0 Active Medications No Known Medications Results No Known Results Summary Purpose [employer] Submission
[2017-06-18] MEDS: SALINE FLUSH 10ml SYRINGE IVF PRN (08:31)
[2017-06-18] MEDS: ACETAMINOPHEN 500 MG TABLET PO PRN ×2 (08:31→19:30)
--- NOTE | 2017-06-18 09:23 | XRay Report ---
Indication: rash PROCEDURE: XR tib/fib RT 2V: Encounter: Initial Comparison: None Findings: There is no acute fracture, dislocation or malalignment identified. Mild subcutaneous edema. Scattered occasional soft tissue calcifications. No subcutaneous gas seen. Impression: No acute osseous abnormality. .
[2017-06-18 11:10] VITALS: BMI 27.1
--- NOTE | 2017-06-18 11:43 | History & Physical Report ---
History of Present Illness Date: 06/18/17 Chief complaint: RLE cellulitis HPI: Tommy is a pleasant 67-year-old male who presented to the emergency room today for acute evaluation of right lower extremity erythema. Initially started feeling poorly on Monday06/16/17. Noted to have a fever up to 102, with headache and achiness. His felt like he was slightly confused and he was brought to the emergency room then for acute evaluation. In the acute evaluation at that time that did reveal a white count of 11.5, with 12% bands. He had reported some mild loose stools. KUB was negative, chest x-ray negative, CT abdomen showed no acute process. Surgery panel was obtained that was negative. It was thought that he was starting to have a gastroenteritis process. He was hydrated with fluids. Sent home with Martha and encouraged to follow up. He states that yesterday 06/17. He did feel better until later in the day in which his headache, body chills returned. He reports he awoke this morning at 1 a.m. and noticed his right lower extremity was red. At that time he marked a line of redness with a marker for further monitoring as he has had cellulitis to the right lower extremity in the past. He was last hospitalized in August 2013 for severe sepsis secondary to cellulitis of the right lower extremity. He underwent an I&D by Dr. Willett in the operating room. He was on IV vancomycin and clindamycin under the care of infectious disease. Since that time he has had no further problems or infections of the right lower extremity until this current event. Today, on arrival to the emergency room lab for studies were repeated. White count found. We normal at 6.8, plasma lactate 1.1, electrolytes normal. Upon reviewing blood cultures that were drawn on 06/16, there is presence of Group C Strep in one of the peripheral cultures. Repeat blood cultures were obtained this morning. Given the significance of the right lower extremity erythema completed with positive blood culture. The hospitalist services were contacted and accepted patient for inpatient admission for further acute evaluation and treatment. Review of Systems All systems PM: 10-point ROS was reviewed, no additional remarkable complaints except - Constitutional Constitutional: Present: chills, fever(s), malaise - Musculoskeletal Musculoskeletal Comments: RLE tightness - Integumentary/Breasts Integumentary: Present: erythema (RLE) Past Medical History Patient Stated Medical History Hypertension History of cellulitis in the right lower extremity History of prostate cancer Chronic Varicose veins Surgical History: Tonsillectomy. Varicocele repair. I&D of right lower extremity-2013 ([facility]). Colonoscopy with precancerous polypectomy-07/2016 Family History Updates: Father-colon cancer, from an aneurysm in his 90s. 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 Medications Home Medications Medication Instructions Recorded Confirmed Type Cholecalciferol (Vitamin D3) 3,000 unit PO DAILY #0 08/27/16 06/18/17 History [Vitamin D3] Aspirin 325 mg PO HS 06/16/17 06/18/17 History Lisinopril [Prinivil] 10 mg PO HS 06/16/17 06/18/17 History Multivitamin [One Daily] 1 tab PO DAILY 06/16/17 06/18/17 History Ondansetron [Zofran Odt] 4 mg PO Q6HR PRN 06/18/17 06/18/17 History Allergies Allergy/AdvReac Type Severity Reaction Status Date / Time streptomycin Allergy Unknown Verified 06/18/17 10:04 Sulfa (Sulfonamide Allergy Unknown Verified 06/18/17 10:04 Antibiotics) Exam Vital Signs: Temperature 97.0 F 06/18/17 11:08 Pulse Rate 63 06/18/17 11:08 Respiratory Rate 18 06/18/17 11:08 Blood Pressure 127/71 06/18/17 11:08 Pulse Oximetry 97 06/18/17 11:08 Height/Weight/BMI: Height 1.85 m Weight 93.1 kg Body Mass Index 27.1 - Constitutional Present: no acute distress, well nourished, well developed - Routine HEENT Exam Eye: Present: EOMI ENT: Present: mucous membranes moist, dentition normal - Routine Respiratory Exam Present: CTA bilaterally. Absent: wheezes - Routine Cardiovascular Exam Present: RRR, S1, S2. Absent: murmur - Routine Abdominal Exam Present: soft, normoactive bowel sounds, non distended. Absent: tenderness - Routine Extremities Exam Present: edema, pulses intact, normal capillary refill - Detailed Lower Extremity Exam Lower leg: Right swelling, Right erythema, Right warmth Comments: Lymphadenopathy streaking up right medial thigh into right groin - Routine Skin Exam Present: intact, dry, warm Comments: Lymphadenopathy right groin - Routine Neurological Exam Present: alert, oriented X3, CN II-XII intact, moving all extremities, vision grossly intact, hearing grossly intact - Routine Psychiatric Exam Present: normal affect Results - Labs CBC & Chem 7: 06/18/17 08:32 06/18/17 08:32 Assessment and Plan (1) Cellulitis of right lower leg Current visit: Yes Status: Acute Assessment and Plan: Impression Cellulitis RLE Positive blood culture on admission Hypertension History of prostate cancer History of right lower extremity cellulitis Plan Admit patient to inpatient status under care of Dr. Dubois for right lower extremity cellulitis Repeat blood cultures were obtained in the emergency room. Patient was started on IV vancomycin for antimicrobial coverage. Will repeat a venous lactate as per sepsis protocol. Will continue with IV vancomycin and add IV clindamycin for antimicrobial coverage has cultures are pending. Venous Doppler of the right lower extremity was negative for acute DVT. Will utilize CASSIE hose for gentle compression. As patient does chronically have some lower extremity edema. Patient may have regular diet, encouraged him to utilize Zofran as needed for nausea. Recheck CBC and BMP tomorrow morning to follow blood counts, renal function and electrolytes We'll discuss further orders and plan of care with attending, Dr. Dubois. At time of discharge medical care will return to his primary care provider. Dr. Seema Currie 06/18/2017-I reviewed this chart, the patient history, and the TECHNICIAN SUPPORT ENGINEER's/PA's documented findings as above. We discussed and formulated the assessment and plan as above with the additions below.-Dr Dubois The patient was seen this afternoon after he was transferred to the floor. He described that he started feeling poorly on the evening of , June 15. On the , he had fever headache and an upset stomach. His thought he was a little confused. He was brought into the emergency room and found to have a fever and mildly elevated white count. Lactate was normal. He had no redness or pain in his leg at that time. He was given IV fluids and felt better. Blood cultures were drawn. He was given a gram is cefepime. Because he was feeling so much better he was dismissed to home. He felt fine yesterday, but then last night began to have pain in his right groin and noticed some erythema in his right calf. This morning he had a little bit of a headache. He states he does not have any pain in his leg at rest but it is up to a 2 when he is walking. He has a history of necrotizing fasciitis in the right lower extremity above his ankle in 2013. He states his pain then was severe and he could not walk. He states this feels nothing like when he had necrotizing fasciitis but the erythema is in the same location. He came into the emergency room for follow-up. It was noted that one of his 2 blood cultures drawn on the evening of the was positive for group see strep. Currently, he states he's feeling okay. His appetite is improving. He denies any shortness of breath or significant cough. He denies any chest pain. On exam he is alert and oriented and in no acute distress. HEENT reveals sclerae to be anicteric and pupils are equal round and reactive. Neck is supple without lymphadenopathy. Chest is clear to auscultation. Cardiac vascular reveals a regular rate and rhythm with a 2/6 systolic murmur. Abdomen is soft and nontender. Upper extremities reveal no edema, clubbing or cyanosis. He has no splinter hemorrhages. Left lower extremity appears normal. Right lower should be reveals some chronic skin color changes with grayish brown venous stasis changes. He also has erythema and increased warmth from just above the ankle to just below the knee this area is mildly edematous and erythematous. There are no open wounds or serrations. Right calf is slightly tender to touch. It is slightly warmer to touch than the left leg. He also has some faint erythema of the right medial thigh and has some lymphadenopathy that is palpable in his right groin. This area is not tender. Lab work was reviewed. Interestingly his white count is down today. Lactate is normal. C-reactive protein is elevated. Impression Cellulitis of the right lower extremity. No signs at this time to indicate necrotizing fasciitis. Group C strep on one of 2 blood cultures from 2 nights ago Plan The patient was given vancomycin and clindamycin in the emergency room. Discussed positive blood culture and new diagnosis of cellulitis with Dr. Mojica and she recommends switching to Ancef. She stated if he was improving on Ancef he could likely switch to amoxicillin or Keflex. We will follow-up on blood cultures drawn today. The patient will likely need to be hospitalized for the next 2 days. Check CBC and basic metabolic profile tomorrow. Lovenox for DVT prophylaxis. Would not place SCDs on the right leg. DVT Prophylaxis: Lovenox Resuscitation Status: Full Code - Physician Narrative Narrative: Date: 06/18/17 Time: 1137 Hospital Course Summary Disclaimer: The visit summary below is not to be considered part of the above Progress Note. Hospital Course: 06/18/17 Impression Cellulitis RLE Positive blood culture on admission Hypertension History of prostate cancer History of right lower extremity cellulitis Plan Admit patient to inpatient status under care of Dr. Dubois for right lower extremity cellulitis Repeat blood cultures were obtained in the emergency room. Patient was started on IV vancomycin for antimicrobial coverage. Will repeat a venous lactate as per sepsis protocol. Will continue with IV vancomycin and add IV clindamycin for antimicrobial coverage has cultures are pending. Venous Doppler of the right lower extremity was negative for acute DVT. Will utilize CASSIE hose for gentle compression. As patient does chronically have some lower extremity edema. Patient may have regular diet, encouraged him to utilize Zofran as needed for nausea. Recheck CBC and BMP tomorrow morning to follow blood counts, renal function and electrolytes We'll discuss further orders and plan of care with attending, Dr. Dubois. At time of discharge medical care will return to his primary care provider. Dr. Seema Currie
[2017-06-18] MEDS ORDERED: CLINDAMYCIN PB 600 MG/50 ML BAG IV SCH (12:00)
[2017-06-18] MEDS: CEFAZOLIN 1 G in NS 100 ML IV SCH ×2 (16:17→22:15)
[2017-06-18] MEDS: ENOXAPARIN 40 MG/0.4 ML INJECTION SQ SCH (16:17)
[2017-06-18] MEDS: LACTOBACILLUS (15B cfu) CAPSULE PO SCH (16:31)
[2017-06-18] MEDS ORDERED: INFLUENZA VAC High Dose 2017-18 (Fluzone HD*) (>=65yo) 0.5ml IM ONE (20:00)
[2017-06-18] MEDS ORDERED: NAPROXEN 250 MG TABLET PO PRN (21:28)
[2017-06-18] MEDS ORDERED: ONDANSETRON 4 MG/2 ML INJECTION IVP PRN (22:05)
[2017-06-18] MEDS: Oxycodone/Acetaminophen 5/325 1 TAB PO PRN (22:10)
[2017-06-18] MEDS: ASPIRIN 325 MG TABLET PO SCH (22:15)
[2017-06-18] MEDS: LISINOPRIL 10 MG TABLET PO SCH (22:16)
[2017-06-19] MEDS: Oxycodone/Acetaminophen 5/325 1 TAB PO PRN (03:28)
[2017-06-19] MEDS: CEFAZOLIN 1 G in NS 100 ML IV SCH ×4 (03:30→22:02)
[2017-06-19] MEDS: LACTOBACILLUS (15B cfu) CAPSULE PO SCH ×2 (09:16→17:03)
[2017-06-19] MEDS: MULTI-VITAMIN + MINERAL TABLET PO SCH (09:17)
[2017-06-19] MEDS: ENOXAPARIN 40 MG/0.4 ML INJECTION SQ SCH (09:17)
--- NOTE | 2017-06-19 12:52 | Progress Note ---
- Date 06/19/17 Subjective: Patient is seen lying in his bed today. Overall, he states he's feeling well. He has been getting up and walking around. States the leg feels "tight," but does not have significant pain. He was having quite a bit of pain in shoulders and felt achy overnight. He has had some Percocet which helped with this. Appetite is fine. Last bowel movement this morning. No fevers. Objective Vital signs: Temperature 96.7 F L 06/19/17 07:33 Pulse Rate 72 06/19/17 07:33 Respiratory Rate 16 06/19/17 07:33 Blood Pressure 120/72 06/19/17 07:33 Pulse Oximetry 95 06/19/17 07:33 Height/Weight/BMI: Height 1.85 m Weight 94.4 kg Body Mass Index 27.1 - Constitutional Present: no acute distress, well nourished, well developed - Routine Respiratory Exam Present: CTA bilaterally. Absent: wheezes - Routine Cardiovascular Exam Present: RRR. Absent: murmur - Routine Abdominal Exam Present: soft, normoactive bowel sounds, non distended. Absent: tenderness - Routine Extremities Exam Present: no edema (left leg), normal capillary refill Comments: Continues to have erythema and warmth to the right lower leg. Area of erythema has not extended beyond the permanent marker and has receded slightly on the posterior leg. - Routine Skin Exam Present: dry, warm - Routine Neurological Exam Present: alert, oriented X3 - Routine Lymphatic Exam Lymphatic: Absent: adenopathy - Routine Psychiatric Exam Present: normal affect, cooperative Results - Labs CBC & Chem 7: 06/19/17 04:17 06/19/17 04:17 Assessment and Plan (1) Cellulitis of right lower leg Current visit: Yes Status: Acute Assessment and Plan: Impression Cellulitis RLE Positive blood culture on admission Hypertension History of prostate cancer History of right lower extremity cellulitis Plan Continue Ancef IV. Preliminary blood culture negative. Overall, patient is doing well. No leukocytosis and remains afebrile. 06/19/2017-I reviewed this chart, the patient history, and the PROGRAM REP's/PA's documented findings as above. We discussed and formulated the assessment and plan as above with the additions below.-Dr. Dubois The patient was seen today accompanied by his and one of his sons. He states he's feeling better. His leg is not as tender. He states when he is up walking his leg is not as painful in the thigh. His generalized achiness is better. He still has a mild headache. He is eating and drinking well. He is breathing well. He denies any other complaints. On exam he is alert and in no acute distress. Chest is clear to auscultation. Cardiovascular reveals a regular rate and rhythm. Abdomen is soft and nontender. Left lower extremity reveals no edema or erythema. Right lower extremity reveals decreased intensity of the erythema in the lower leg and in the thigh. Both are less tender to palpation. Outlines of the areas of redness were marked yesterday and the erythema does not extend beyond the marked lines. Impression and plan Cellulitis-appears to be improving. Group C strep positive blood culture one of 2 prior to admission, follow-up blood cultures yesterday are negative so far-continue Ancef Reevaluate tomorrow, possible discharge tomorrow or the next day if blood cultures remain negative and cellulitis continues to do well. Recommend Tylenol for headache. He is also a heavy coffee drinker but quit drinking abruptly a few days ago. He may have a caffeine withdrawal headache and could try drinking some coffee today and gradually discontinuing coffee in the future if he wants to quit completely. - Physician Narrative Narrative: Date: 06/19/17 Time: 1246 Hospital Course Summary Disclaimer: The visit summary below is not to be considered part of the above Progress Note. Hospital Course: 06/18/17 Impression Cellulitis RLE Positive blood culture on admission Hypertension History of prostate cancer History of right lower extremity cellulitis Plan Admit patient to inpatient status under care of Dr. Dubois for right lower extremity cellulitis Repeat blood cultures were obtained in the emergency room. Patient was started on IV vancomycin for antimicrobial coverage. Will repeat a venous lactate as per sepsis protocol. Will continue with IV vancomycin and add IV clindamycin for antimicrobial coverage has cultures are pending. Venous Doppler of the right lower extremity was negative for acute DVT. Will utilize CASSIE hose for gentle compression. As patient does chronically have some lower extremity edema. Patient may have regular diet, encouraged him to utilize Zofran as needed for nausea. Recheck CBC and BMP tomorrow morning to follow blood counts, renal function and electrolytes We'll discuss further orders and plan of care with attending, Dr. Dubois. At time of discharge medical care will return to his primary care provider. Dr. Seema Currie 06/19/17 Continue Ancef IV. Preliminary blood culture negative. Overall, patient is doing well. No leukocytosis and remains afebrile.
[2017-06-19] MEDS: ACETAMINOPHEN 500 MG TABLET PO PRN (15:03)
[2017-06-19] MEDS: LISINOPRIL 10 MG TABLET PO SCH (22:01)
[2017-06-19] MEDS: ASPIRIN 325 MG TABLET PO SCH (22:02)
[2017-06-19] MEDS: SALINE FLUSH 10ml SYRINGE IVF PRN (22:03)
[2017-06-19] MEDS ORDERED: NS FLUSH BAG 500ml IV PRN (22:21)
[2017-06-20] MEDS: CEFAZOLIN 1 G in NS 100 ML IV SCH ×4 (02:56→22:09)
[2017-06-20] MEDS: SALINE FLUSH 10ml SYRINGE IVF PRN (02:57)
--- NOTE | 2017-06-20 08:23 | Ultrasound Report ---
Indication: Right leg pain, swelling PROCEDURE: US venous doppler LE RT: Encounter: Initial Comparison: None Technique: Color Doppler duplex and grayscale sonographic imaging of the right lower extremity was performed. Findings: There is no evidence for acute deep venous thrombosis in the right thigh. 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 Specifically, serial graded compression was performed from the inguinal ligament to the popliteal bifurcation, on the right thigh, demonstrating appropriate compressibility of the deep venous system. In addition, color and pulsed Doppler demonstrate appropriate spontaneous flow, variation with respiration, and augmentation with calf compression. At the ankle, normal flow is identified in the posterior tibial veins; these vessels are also normal in caliber. Lymph nodes are noted in the right groin that could be reactive to infection or inflammation. Multiple varicose veins. Impression: No evidence of acute DVT in the right lower limb. There is a preliminary report by [facility]. .
[2017-06-20] MEDS: LACTOBACILLUS (15B cfu) CAPSULE PO SCH ×2 (09:05→16:46)
[2017-06-20] MEDS: MULTI-VITAMIN + MINERAL TABLET PO SCH (09:05)
[2017-06-20] MEDS: ENOXAPARIN 40 MG/0.4 ML INJECTION SQ SCH (09:05)
--- NOTE | 2017-06-20 13:48 | Progress Note ---
- Date 06/20/17 Subjective: The patient was seen today in his room accompanied by his . He is feeling well today. His headache went away after drinking some coffee yesterday. His leg pain is mostly resolved. He is up walking around without difficulties. He's had no fevers or chills. He is eating and drinking well. Objective Vital signs: Temperature 97.6 F 06/20/17 08:00 Pulse Rate 72 06/20/17 08:00 Respiratory Rate 16 06/20/17 08:00 Blood Pressure 139/80 06/20/17 08:00 Pulse Oximetry 95 06/20/17 08:00 Height/Weight/BMI: Height 1.85 m Weight 92.8 kg Body Mass Index 27.1 Comments: GEN-alert, oriented, no acute distress CV-regular rate and rhythm CHEST-clear to auscultation bilaterally ABD-soft, nontender with positive bowel sounds -no Stephen EXT-no edema of the left leg, the patient continues to have erythema of the right calf and eric, it is mildly decreased from yesterday. The erythema in his medial thigh is markedly better. NEURO-no focal deficits Results - Labs CBC & Chem 7: 06/19/17 04:17 06/19/17 04:17 Assessment and Plan (1) Cellulitis of right lower leg Current visit: Yes Status: Acute Assessment and Plan: Impression Cellulitis RLE Positive blood culture group C strep prior to admission. Blood cultures on admission negative after 2 days Hypertension History of prostate cancer History of right lower extremity cellulitis Plan Repeat blood cultures drawn on admission are negative to date Headache has resolved Overall, he is doing well but there is still quite a bit of erythema in the anterior eric. Continue on IV Ancef for today. Repeat CBC, basic metabolic and C -reactive protein tomorrow. Probable discharge tomorrow on oral antibiotics for one week with plan for follow-up with his primary care physician in one week. - Physician Narrative Narrative: Date: 06/20/17 Time: 1343 Hospital Course Summary Disclaimer: The visit summary below is not to be considered part of the above Progress Note. Hospital Course: 06/18/17 Impression Cellulitis RLE Positive blood culture on admission Hypertension History of prostate cancer History of right lower extremity cellulitis Plan Admit patient to inpatient status under care of Dr. Dubois for right lower extremity cellulitis Repeat blood cultures were obtained in the emergency room. Patient was started on IV vancomycin for antimicrobial coverage. Will repeat a venous lactate as per sepsis protocol. Will continue with IV vancomycin and add IV clindamycin for antimicrobial coverage has cultures are pending. Venous Doppler of the right lower extremity was negative for acute DVT. Will utilize CASSIE hose for gentle compression. As patient does chronically have some lower extremity edema. Patient may have regular diet, encouraged him to utilize Zofran as needed for nausea. Recheck CBC and BMP tomorrow morning to follow blood counts, renal function and electrolytes We'll discuss further orders and plan of care with attending, Dr. Dubois. At time of discharge medical care will return to his primary care provider. Dr. Seema Currie 06/19/17 Continue Ancef IV. Preliminary blood culture negative. Overall, patient is doing well. No leukocytosis and remains afebrile. 06/20/17 13:48 Plan Repeat blood cultures drawn on admission are negative to date Headache has resolved Overall, he is doing well but there is still quite a bit of erythema in the anterior eric. Continue on IV Ancef for today. Repeat CBC, basic metabolic and C -reactive protein tomorrow. Probable discharge tomorrow on oral antibiotics for one week with plan for follow-up with his primary care physician in one week.
[2017-06-20] MEDS: ASPIRIN 325 MG TABLET PO SCH (22:08)
[2017-06-20] MEDS: LISINOPRIL 10 MG TABLET PO SCH (22:09)
[2017-06-21] MEDS: CEFAZOLIN 1 G in NS 100 ML IV SCH ×3 (03:33→15:14)
[2017-06-21 03:44] VITALS: O2SAT 97
[2017-06-21] MEDS: MULTI-VITAMIN + MINERAL TABLET PO SCH (08:36)
[2017-06-21] MEDS: ENOXAPARIN 40 MG/0.4 ML INJECTION SQ SCH (08:36)
[2017-06-21] MEDS: LACTOBACILLUS (15B cfu) CAPSULE PO SCH (08:36)
--- NOTE | 2017-06-21 15:37 | Discharge Summary ---
Discharge Information Date of admission: 06/18/17 10:49 Anticipated date of discharge: 06/21/17 Attending Physician: Ligia Dubois MD Primary care physician: Seema Currie - Discharge Diagnosis (1) Cellulitis of right lower leg Status: Acute Cellulitis RLE Positive blood culture group C strep prior to admission. Blood cultures on admission negative after 2 days Hypertension History of prostate cancer History of right lower extremity necrotizing fasciitis - Laboratory Labs: 06/21/17 04:06 06/21/17 04:06 White count on admission 6.7 with neutrophils of 78%. White count on discharge 4.6 with neutrophils of 51% and bands of 8% C reactive protein on admission 76.6 and improved to 25.3 on discharge Pro-calcitonin 0.59 on outpatient testing 06/16/2017 and on discharge is down to 0.09 - Microbiology Blood cultures done in the emergency room on 06/16/2017 showed 1 of 2 positive for group C Streptococcus. The second blood culture from 06/16/2017 has been negative for 4 days. Blood cultures on admission 06/18/2017 are negative so far after 3 days - Radiology Radiology: PROCEDURE: XR tib/fib RT 2V: Encounter: Initial Comparison: None Findings: There is no acute fracture, dislocation or malalignment identified. Mild subcutaneous edema. Scattered occasional soft tissue calcifications. No subcutaneous gas seen. Impression: No acute osseous abnormality. . Type of Exam(s): US venous doppler LE RT Reason for Exam(s): pain, swelling Indication: Right leg pain, swelling PROCEDURE: US venous doppler LE RT: Encounter: Initial Comparison: None Technique: Color Doppler duplex and grayscale sonographic imaging of the right lower extremity was performed. Findings: There is no evidence for acute deep venous thrombosis in the right thigh. 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 Specifically, serial graded compression was performed from the inguinal ligament to the popliteal bifurcation, on the right thigh, demonstrating appropriate compressibility of the deep venous system. In addition, color and pulsed Doppler demonstrate appropriate spontaneous flow, variation with respiration, and augmentation with calf compression. At the ankle, normal flow is identified in the posterior tibial veins; these vessels are also normal in caliber. Lymph nodes are noted in the right groin that could be reactive to infection or inflammation. Multiple varicose veins. Impression: No evidence of acute DVT in the right lower limb. There is a preliminary report by [facility]. . History of Present Illness HPI: Tommy is a pleasant 67-year-old male who presented to the emergency room today for acute evaluation of right lower extremity erythema. Initially started feeling poorly on Monday06/16/17. Noted to have a fever up to 102, with headache and achiness. His felt like he was slightly confused and he was brought to the emergency room then for acute evaluation. In the acute evaluation at that time that did reveal a white count of 11.5, with 12% bands. He had reported some mild loose stools. KUB was negative, chest x-ray negative, CT abdomen showed no acute process. Surgery panel was obtained that was negative. It was thought that he was starting to have a gastroenteritis process. He was hydrated with fluids. Sent home with Martha and encouraged to follow up. He states that yesterday 06/17. He did feel better until later in the day in which his headache, body chills returned. He reports he awoke this morning at 1 a.m. and noticed his right lower extremity was red. At that time he marked a line of redness with a marker for further monitoring as he has had cellulitis to the right lower extremity in the past. He was last hospitalized in August 2013 for severe sepsis secondary to cellulitis of the right lower extremity. He underwent an I&D by Dr. Willett in the operating room. He was on IV vancomycin and clindamycin under the care of infectious disease. Since that time he has had no further problems or infections of the right lower extremity until this current event. Today, on arrival to the emergency room lab for studies were repeated. White count found. We normal at 6.8, plasma lactate 1.1, electrolytes normal. Upon reviewing blood cultures that were drawn on 06/16, there is presence of Group C Strep in one of the peripheral cultures. Repeat blood cultures were obtained this morning. Given the significance of the right lower extremity erythema completed with positive blood culture. The hospitalist services were contacted and accepted patient for inpatient admission for further acute evaluation and treatment. Objective Vital signs: Temperature 98.3 F 06/21/17 00:00 Pulse Rate 67 06/21/17 07:54 Respiratory Rate 18 06/21/17 07:54 Blood Pressure 128/83 06/21/17 07:54 Pulse Oximetry 97 06/21/17 07:54 Height/Weight/BMI: Height 1.85 m Weight 95.6 kg Body Mass Index 27.1 Hospital Course This is a general summary of the patient's hospital course. For more details refer to the complete medical record. Hospital course: 06/18/17 Impression Cellulitis RLE Positive blood culture on admission Hypertension History of prostate cancer History of right lower extremity cellulitis Plan Admit patient to inpatient status under care of Dr. Dubois for right lower extremity cellulitis Repeat blood cultures were obtained in the emergency room. Patient was started on IV vancomycin for antimicrobial coverage. Will repeat a venous lactate as per sepsis protocol. Will continue with IV vancomycin and add IV clindamycin for antimicrobial coverage has cultures are pending. Venous Doppler of the right lower extremity was negative for acute DVT. Will utilize CASSIE hose for gentle compression. As patient does chronically have some lower extremity edema. Patient may have regular diet, encouraged him to utilize Zofran as needed for nausea. Recheck CBC and BMP tomorrow morning to follow blood counts, renal function and electrolytes We'll discuss further orders and plan of care with attending, Dr. Dubois. At time of discharge medical care will return to his primary care provider. Dr. Seema Currie 06/19/17 Continue Ancef IV. Preliminary blood culture negative. Overall, patient is doing well. No leukocytosis and remains afebrile. 06/21/2017-Dr. Duobis Patient was admitted on 06/18/2017 with right lower extremity erythema from just below his knee to just above his ankle and for some right medial upper thigh erythema. These areas in his legs were painful, especially with walking. He been in the emergency room on 06/16/2017 due to fever and upset stomach. Blood cultures were drawn at that time and he was given a one-time dose of cefepime. He did not have any erythema in his leg at that time and he was discharged to home from the ER after feeling better. When he presented to the emergency room on 06/18/2017 it was noted that he did have a positive blood culture from his visit on 06/16/2017. He was also diagnosed with new cellulitis of his right calf and right upper inner thigh. Venous Doppler was negative for DVT but did show lymphadenopathy in the groin. The patient was initially given vancomycin and clindamycin IV. After discussion with infectious disease specialist he was started on Ancef. Over the next several days, the patient's leg pain resolved. His erythema was improving daily as well. He was eating and drinking well. He had no further fevers. White count was decreasing. C-reactive protein decreased. Pro-calcitonin was also improved. On the day of discharge she was alert and oriented and in no acute distress. Chest is clear to auscultation. Cardiovascular reveals a regular rate and rhythm. Abdomen is soft and nontender. Left leg reveals no edema. Right leg reveals some faint erythema in the right medial upper thigh which is improved. He also has erythema from just below the knee to just above the ankle which is fading. He has some mild edema in the right leg compared to the left, this is to some extent chronic. On 06/21/2017 it was felt that the patient was stable for dismissal to home.. Due to his history of chronic edema in this leg and history of necrotizing fasciitis, will give Keflex orally for 10 days. He is to follow-up with his primary care doctor in 1 week. He is return to the emergency room if he has recurrence of fevers, chills, increasing redness or pain in his leg, or any other concerning symptoms. Time spent with patient: greater than 35 minutes Discharge Plan - Discharge Disposition Discharge Date: 06/21/17 Disposition: 01 Discharged Home, Self-Care *Condition: Stable Reason For Visit (Visit label in EMR): Cellulitis - Discharge Medications *Discharge Medications: New Naproxen [Naprosyn] 250 mg PO BID PRN tablet PRN Reason: Pain CephALEXin [Keflex] 500 mg PO QID 10 Days #40 cap Continue Aspirin 325 mg PO HS Lisinopril [Prinivil] 10 mg PO HS Ondansetron [Zofran Odt] 4 mg PO Q6HR PRN PRN Reason: Nausea Cholecalciferol (Vitamin D3) [Vitamin D3] 3,000 unit PO DAILY #0 Multivitamin [One Daily] 1 tab PO DAILY - Discharge Packet/Instructions *Diet: as tolerated *Activity: light activity as tolerated. Try to keep leg elevated while sitting until redness has improved. Ok to return to light work next week if leg redness and swelling continues to show improvement *Pain Management/Treatment: Tylenol or Naprosyn as needed *Wound Care: Not applicable *Expected Signs/Symptoms: Redness and swelling of your right leg should gradually improve *Notify Physician if: Return to the emergency room or notify your doctor if you' re having fevers, chills, worsening redness or swelling in your leg. Also notify your doctor if you have severe diarrhea over the next 2-3 months which could be related to antibiotic use. *During Business Hours Contact: Call your primary care doctor's office *After Business Hours Contact: Call your primary care doctor's office for after hours instructions *Pending Lab/Results: Follow up w/your PCP (blood cultures have not finalized) - Referrals/Follow Up *Referrals/Follow Up: Seema Currie [Family Provider] - 1 Week - Patient Handouts Patient Handouts: Cellulitis (GEN) - Dismissal Complete Discharge Instructions are:: Complete Physician Narrative - Narrative Attestation Narrative: Date: 06/21/17 Time: 9488
[2017-06-21 15:48] VITALS: BP 127/78; PULSE 71; RESP 16; TEMP 97.8
== END 2017-06-21 16:16 | disposition home or self-care (01) | DRG 603 ==
LOC: ED 07:52 → MED 10:49
PROVIDERS: ADMIT Internal Medicine; ATTEND Internal Medicine